=== PATIENT | female | born 1945 | race Caucasian/White ===

== ENCOUNTER → 2018-02-25 07:52 | Outpatient (REF) | payer OTHER, SELFPAY ==
[2018-02-25 08:20] LABS: INR 4.5 (0.9-1.3); Prothrombin Time 53.3 SECONDS (10.1-12.7)
[2018-02-25 08:23] LABS: Add Manual Diff / Slide Review NO; Basophils Percent Auto 0.9 % (0-2); Eosinophils Percent Auto 1.3 % (2-4); Hemoglobin 12.3 g/dL (12.0-16.0); Lymphocytes Percent Auto 13.1 % (25-40); Mean Corpuscular HGB Conc 32.3 % (30-36); Mean Corpuscular Hemoglobin 27.1 PG (26-34); Mean Corpuscular Volume 84.1 fL (80-100); Neutrophils Absolute Auto 4700 /uL (1500-7000); Neutrophils Percent Auto 75.7 % (50-75); Platelet Count 216 X10^3/uL (150-400); Red Blood Cell Count 4.52 X10^6/uL (4.0-5.2); Red Cell Distribution Width 16.7 % (11.6-14.8); White Blood Cell Count 6.2 X10^3/uL (4.5-11.0)
[2018-02-25 08:27] LABS: BUN Creatinine Ratio 37.5 (6-22); Blood Urea Nitrogen 15 mg/dL (7-17); Calcium 10.2 mg/dL (8.4-10.2); Chloride 93 mmol/L (98-107); Estimated Glomerular Filt Rate > 60.0 mL/min (>60); Glucose 85 mg/dL (80-110); HEMOLYSIS < 15 (0-50); Potassium 3.9 mmol/L (3.4-5.1); Sodium 138 mmol/L (137-145)
[2018-02-25 08:38] LABS: Carbon Dioxide 39 mmol/L (22-32)
== END ==
LOC: LAB 07:52
PROVIDERS: Visit Provider Hospitalist
DX: I48.91 Unspecified atrial fibrillation (principal); I10 Essential (primary) hypertension
CPT/HCPCS: 36415; 80048; 85025; 85610

== ENCOUNTER → 2018-03-06 07:18 | Outpatient (REF) | payer OTHER, SELFPAY ==
[2018-03-06 09:24] LABS: Prothrombin Time 74.5 SECONDS (10.1-12.7)
[2018-03-06 09:35] LABS: INR 6.2 (0.9-1.3)
== END ==
LOC: LAB 07:18
PROVIDERS: Visit Provider Hospitalist
DX: I48.91 Unspecified atrial fibrillation (principal)
CPT/HCPCS: 36415; 85610

== ENCOUNTER → 2018-03-08 14:02 | Outpatient (REF) | payer OTHER, SELFPAY ==
[2018-03-08 14:09] LABS: INR 1.9 (0.9-1.3); Prothrombin Time 22.1 SECONDS (10.1-12.7)
== END ==
LOC: LAB 14:02
PROVIDERS: Visit Provider Hospitalist
DX: Z79.01 Long term (current) use of anticoagulants (principal)
CPT/HCPCS: 85610

== ENCOUNTER → 2018-03-11 07:40 | Outpatient (REF) | payer OTHER, SELFPAY ==
[2018-03-11 08:52] LABS: INR 2.2 (0.9-1.3); Prothrombin Time 26.2 SECONDS (10.1-12.7)
[2018-03-11 10:13] LABS: Thyroid Stimulating Hormone 3.15 uIU/mL (0.47-4.68)
== END ==
LOC: LAB 07:40
PROVIDERS: Visit Provider Nurse Practitioner
DX: I48.91 Unspecified atrial fibrillation (principal); E03.9 Hypothyroidism, unspecified
CPT/HCPCS: 36415; 84443; 85610

== ENCOUNTER 2018-03-12 12:22 | Emergency (ER) | payer OTHER, SELFPAY ==
[2018-03-12] VITALS (12 sets, daily range): BP systolic 89–117; BP diastolic 47–83; PULSE 75–135; RESP 17–25; TEMP 36.6–36.8; O2SAT 93–100; BMI 22.8
--- NOTE | 2018-03-12 12:47 | DI.RAD.S_ITS ---
PROCEDURE: XR CHEST 1V INDICATIONS: SOB, recent pneumonia TECHNIQUE: One view of the chest was acquired. COMPARISON: [facility], CR, ABDOMEN ACUTE SERIES, 05/03/2013, 15:10. FINDINGS: This examination is severely limited as the patient is unable to move her head away from the [id number] of the lungs. Elevation of the left diaphragm is present. There may be a normal consolidation at the left lung base. The heart is enlarged. There appears to be a large hiatal hernia. The transverse colon may be distended. Pneumatosis structures are grossly unremarkable. IMPRESSION: 1. Limited evaluation of the chest. There may be left basilar atelectasis versus pneumonia. Please correlate clinically. 2. Prominent hiatal hernia. 3. Cardiomegaly. Dictated by: Charles Alejandro M.D. on 03/12/2018 at 12:33 Approved by: Charles Alejandro M.D. on 03/12/2018 at 12:35
[2018-03-12 12:58] LABS: Add Manual Diff / Slide Review NO; Basophils Absolute Auto 0 /uL (0-100); Basophils Percent Auto 0.7 % (0-2); Eosinophils Absolute Auto 100 /uL (0-450); Hematocrit 36.5 % (36-46); Hemoglobin 11.6 g/dL (12.0-16.0); Lymphocytes Absolute Auto 900 /uL (1100-4500); Lymphocytes Percent Auto 21.9 % (25-40); Mean Corpuscular HGB Conc 31.8 % (30-36); Mean Corpuscular Hemoglobin 26.7 PG (26-34); Mean Corpuscular Volume 84.1 fL (80-100); Monocytes Absolute Auto 500 /uL (0-900); Monocytes Percent Auto 11.3 % (3-14); Neutrophils Absolute Auto 2700 /uL (1500-7000); Neutrophils Percent Auto 63.1 % (50-75); Platelet Count 242 X10^3/uL (150-400); Red Blood Cell Count 4.34 X10^6/uL (4.0-5.2); Red Cell Distribution Width 18.3 % (11.6-14.8); White Blood Cell Count 4.2 X10^3/uL (4.5-11.0)
[2018-03-12 13:16] LABS: Alanine Aminotransferase 20 IU/L (9-52); Albumin 3.7 g/dL (3.5-5.0); Albumin Globulin Ratio 1.4 (1.0-2.8); Alkaline Phosphatase 79 U/L (38-126); Aspartate Aminotransferase 8 IU/L (14-36); BUN Creatinine Ratio 21.7 (6-22); Bilirubin Total 0.8 mg/dL (0.2-1.3); Blood Urea Nitrogen 13 mg/dL (7-17); Calcium 9.9 mg/dL (8.4-10.2); Carbon Dioxide 33 mmol/L (22-32); Chloride 97 mmol/L (98-107); Estimated Glomerular Filt Rate > 60.0 mL/min (>60); Globulin 2.7 g/dL (1.7-4.1); Glucose 91 mg/dL (80-110); HEMOLYSIS < 15 (0-50); Potassium 4.1 mmol/L (3.4-5.1); Sodium 137 mmol/L (137-145); Total Protein 6.4 g/dL (6.3-8.2)
[2018-03-12 13:31] LABS: Procalcitonin < 0.05 ng/mL (<0.5)
--- NOTE | 2018-03-12 13:37 | ED.SOB ---
HPI - SOB/Dyspnea General Chief Complaint: Shortness of Breath/Dyspnea Stated Complaint: Trouble breathing Time Seen by Provider: 03/12/18 12:42 Source: patient, family and EMS Mode of arrival: EMS Limitations: no limitations History of Present Illness 73-year-old female with chronic medical problems presents to the emergency department today with a chief complaint occasional cough with some epigastric discomfort as well as occasionally low blood pressures and high heart rate. The patient was recently hospitalized for an extended period and had a pneumonia diagnosed CT scan. She was discharged from [facility] to a local [facility] facility and after evaluation today was sent for further evaluation. The patient denies much in the way of any symptoms and states she has a little bit upset that she is here and actually feels great. She has had no fever or chills, she denies nausea, vomiting or diarrhea MD Complaint: cough Onset (ago): day(s) Severity: moderate Consistency/Duration: constant Relieving factors: nothing Exacerbating factors: nothing Known history of: aspiration pneumonia Associated symptoms: denies other symptoms Treatment prior to arrival: none Related Data Home oxygen amount: none Home Medications Medication Instructions Recorded Confirmed acetaminophen 650 mg PO Q4H 03/12/18 03/12/18 bisacodyl 5 - 10 mg PO PRN PRN 03/12/18 03/12/18 bisacodyl 10 mg TN PRN PRN 03/12/18 03/12/18 carbidopa-levodopa 3 tab PO TID 03/12/18 03/12/18 cholecalciferol (vitamin D3) 3,000 unit PO DAILY 03/12/18 03/12/18 diltiazem HCl [Cartia XT] 120 mg PO DAILY 03/12/18 03/12/18 food supplemt, lactose-reduced 8 oz PO BID 03/12/18 03/12/18 [Ensure] furosemide 40 mg PO DAILY 03/12/18 03/12/18 ipratropium-albuterol 3 ml INHALATION BIDX3D 03/12/18 03/12/18 levothyroxine 100 mcg PO DAILY 03/12/18 03/12/18 magnesium hydroxide [Milk of 30 ml PO PRN PRN 03/12/18 03/12/18 Magnesia] metoprolol tartrate 25 mg PO BID 03/12/18 03/12/18 omeprazole 20 mg PO DAILY 03/12/18 03/12/18 potassium chloride 10 meq PO DAILY 03/12/18 03/12/18 sodium phosphates [Fleet Enema] 1 ea TN PRN PRN 03/12/18 03/12/18 tolterodine [Detrol LA] 2 mg PO DAILY 03/12/18 03/12/18 warfarin [Coumadin] 3 mg PO DAILYX2 03/12/18 03/12/18 Allergies Allergy/AdvReac Type Severity Reaction Status Date / Time hydrocodone Allergy Unknown Verified 03/12/18 12:28 strawberry Allergy Unknown Verified 03/12/18 12:28 Review of Systems Constitutional Denies chills, Denies fever(s), Denies lethargy and Reports weakness Eyes Denies change in vision, Denies eye discharge, Denies irritation and Denies loss of vision ENT Ears, Nose, Mouth, and Throat: Denies change in voice, Denies neck pain and Denies sore throat Cardiovascular Denies chest pain, Denies irregular heart rhythm, Denies lightheadedness, Denies palpitations, Reports dyspnea, Denies dyspnea on exertion and Denies orthopnea Respiratory Reports cough, Reports dyspnea, Denies dyspnea on exertion and Denies wheezing Gastrointestinal Gastrointestinal: Reports abdominal pain, Denies change in bowel habits, Denies diarrhea, Denies nausea and Denies vomiting Genitourinary Denies hematuria, Denies flank pain, Denies urinary incontinence and Denies urinary urgency Musculoskeletal Denies neck pain Integumentary/Breasts Denies pruritus, Denies erythema, Denies rash and Denies wounds Neurologic Denies confusion, Denies loss of vision and Reports weakness Psychiatric Denies anxiety, Denies confusion, Denies depression, Denies homicidal ideation and Denies suicidal ideation Endocrine Denies palpitations Hematologic/Lymphatic Denies easy bruising Allergic/Immunologic Denies wheezing Exam Narrative Exam Narrative: GENERAL: Chronically ill patient is in good spirits and questioning why she is here. No obvious distress HEAD: Atraumatic. Normocephalic. No temporal or scalp tenderness. EYES: Pupils equal round and reactive. Extraocular motions intact. No scleral icterus. No injection or drainage. ENT: Nose without bleeding, purulent drainage or septal hematoma. Throat without erythema, tonsillar hypertrophy or exudate. Uvula midline. Airway patent. NECK: Trachea midline. No JVD or lymphadenopathy. Supple, nontender, no meningeal signs. CARDIOVASCULAR: Tachycardic rate with regular rhythm without murmurs, gallops, or rubs. RESPIRATORY: Clear to auscultation. Breath sounds equal bilaterally. No wheezes, rales, or rhonchi. GASTROINTESTINAL: Abdomen soft, non-tender, nondistended. No hepato-splenomegaly, or palpable masses. No guarding. EXTREMITIES: No clubbing, cyanosis, or edema. No joint tenderness, effusion, or edema noted. BACK: Nontender without deformity or crepitance. No flank tenderness. NEURO: AOx3. SKIN: No rash or erythema. Initial Vital Signs Initial Vital Signs: Vital Signs Temperature 97.9 F 03/12/18 12:27 Pulse Rate 129 H 03/12/18 12:27 Respiratory Rate 18 03/12/18 12:27 Blood Pressure 117/83 03/12/18 12:27 Pulse Oximetry 93 03/12/18 12:27 Course Orders Ordered: ED Orders 03/12/18 12:26 EKG-12 Lead Routine 03/12/18 12:45 Complete Blood Count AUTO DIFF Stat Comprehensive Metabolic Panel Stat Lactate (Lactic Acid) Stat Procalcitonin Stat 03/12/18 12:47 XR chest 1V Stat 03/12/18 13:20 Blood Culture Stat 03/12/18 13:38 CT chest abdomen w con Stat 03/12/18 15:03 EKG-12 Lead Stat Sodium Chloride (Normal Saline 0.9%) 1,592.1 mls @ 530.7 mls/hr 30 ml/kg infuse over 3 hr (1592.1 ml) IV CONT PEDRO Last Infusion: 03/12/18 16:32 Dose: 0 mls/hr Admin: 03/12/18 13:56 Dose: 530.7 mls/hr Discontinued Medications Ceftriaxone Sodium/Dextrose (Rocephin) 1 gm in 50 mls @ 100 mls/hr IV NOW ONE Stop: 03/12/18 13:15 Last Infusion: 03/12/18 16:05 Dose: 0 mls/hr Admin: 03/12/18 13:54 Dose: 100 mls/hr Metoprolol Tartrate (Lopressor) 25 mg PO NOW ONE Stop: 03/12/18 17:18 Last Admin: 03/12/18 17:29 Dose: 25 mg Reevaluation(s) Reevaluation #1: Patient resting comfortably, no specific complaints other than how uncomfortable the bed is. Heart rate is between 97 and 110. Vital Signs - 8 hr 03/12/18 12:27 03/12/18 13:00 03/12/18 13:30 Temperature 97.9 F Pulse Rate 129 H 135 H 129 H Respiratory Rate 18 Blood Pressure 117/83 Blood Pressure [Right Arm] 109/65 104/47 L Pulse Oximetry 93 100 100 03/12/18 14:00 03/12/18 14:30 03/12/18 15:00 Temperature Pulse Rate 122 H 75 126 H Respiratory Rate 25 H Blood Pressure Blood Pressure [Right Arm] 89/74 L 90/71 90/53 L Pulse Oximetry 100 98 99 03/12/18 16:00 03/12/18 17:24 Temperature Pulse Rate 115 H 119 H Respiratory Rate 24 Blood Pressure Blood Pressure [Right Arm] 90/59 L 92/65 Pulse Oximetry 99 100 MDM - SOB/Dyspnea Lab Data Result diagrams: 03/12/18 12:45 03/12/18 12:45 Lab Results 03/12/18 03/12/18 03/12/18 Range/Units 12:45 12:45 12:45 WBC 4.2 L (4.5-11.0) X10^3/uL RBC 4.34 (4.0-5.2) X10^6/uL Hgb 11.6 L (12.0-16.0) g/dL Hct 36.5 (36-46) % MCV 84.1 (80-100) fL MCH 26.7 (26-34) PG MCHC 31.8 (30-36) % RDW 18.3 H (11.6-14.8) % Plt Count 242 (150-400) X10^3/uL Neut % (Auto) 63.1 (50-75) % Lymph % (Auto) 21.9 L (25-40) % [place] % (Auto) 11.3 (3-14) % Eos % (Auto) 3.0 (2-4) % Baso % (Auto) 0.7 (0-2) % Neut # (Auto) 2700 (6949-7855) /uL Lymph # (Auto) 900 L (1690-2606) /uL [place] # (Auto) 500 (0-900) /uL Eos # (Auto) 100 (0-450) /uL Baso # (Auto) 0 (0-100) /uL Sodium 137 (137-145) mmol/L Potassium 4.1 (3.4-5.1) mmol/L Chloride 97 L (98-107) mmol/L Carbon Dioxide 33 H (22-32) mmol/L BUN 13 (7-17) mg/dL Creatinine 0.60 (0.52-1.04) mg/dL Estimated GFR > 60.0 (>60) mL/min BUN/Creatinine Ratio 21.7 (6-22) Glucose 91 (80-110) mg/dL Lactate (0.7-2.1) mmol/L Calcium 9.9 (8.4-10.2) mg/dL Total Bilirubin 0.8 (0.2-1.3) mg/dL AST 8 L (14-36) IU/L ALT 20 (9-52) IU/L Alkaline Phosphatase 79 (38-126) U/L Total Protein 6.4 (6.3-8.2) g/dL Albumin 3.7 (3.5-5.0) g/dL Globulin 2.7 (1.7-4.1) g/dL Albumin/Globulin Ratio 1.4 (1.0-2.8) Procalcitonin < 0.05 (<0.5) ng/mL 03/12/18 Range/Units 12:45 WBC (4.5-11.0) X10^3/uL RBC (4.0-5.2) X10^6/uL Hgb (12.0-16.0) g/dL Hct (36-46) % MCV (80-100) fL MCH (26-34) PG MCHC (30-36) % RDW (11.6-14.8) % Plt Count (150-400) X10^3/uL Neut % (Auto) (50-75) % Lymph % (Auto) (25-40) % [place]wey % (Auto) (3-14) % Eos % (Auto) (2-4) % Baso % (Auto) (0-2) % Neut # (Auto) (7518-9925) /uL Lymph # (Auto) (2998-1852) /uL [place]wey # (Auto) (0-900) /uL Eos # (Auto) (0-450) /uL Baso # (Auto) (0-100) /uL Sodium (137-145) mmol/L Potassium (3.4-5.1) mmol/L Chloride (98-107) mmol/L Carbon Dioxide (22-32) mmol/L BUN (7-17) mg/dL Creatinine (0.52-1.04) mg/dL Estimated GFR (>60) mL/min BUN/Creatinine Ratio (6-22) Glucose (80-110) mg/dL Lactate 1.0 (0.7-2.1) mmol/L Calcium (8.4-10.2) mg/dL Total Bilirubin (0.2-1.3) mg/dL AST (14-36) IU/L ALT (9-52) IU/L Alkaline Phosphatase (38-126) U/L Total Protein (6.3-8.2) g/dL Albumin (3.5-5.0) g/dL Globulin (1.7-4.1) g/dL Albumin/Globulin Ratio (1.0-2.8) Procalcitonin (<0.5) ng/mL Urine Dip Bedside Urine Glucose Negative Bedside Urine Bilirubin - Negative Bedside Urine Ketone - Negative Urine Specific [place] 1.010 Bedside Urine Occult Blood + Bedside Urine pH 8.0 Bedside Urine Protein - Negative Bedside Urine Urobilinogen - Negative Bedside Urine Nitrite - Negative Bedside Urine Leukocytes - Negative Esterase Discharge Plan Departure Patient Disposition: Home Clinical Impression: Abdominal pain, Constipation Instructions: Constipation, Acute Abdominal Pain Activity Restrictions/Additional Instructions: *You have been diagnosed with [ abdominal pain, constipation, atrial fibrillation ] *What to do: *Take medications as directed *Follow up with your primary care provider in 2-3 days, call for an appointment. Let them know you were seen in the Emergency Department and that we ask that you be seen in follow up *Return to ER if you should have any new, worsening or concerning symptoms Prescriptions: No Action tolterodine [Detrol LA] 2 mg Capsule,Extended Release 24hr 2 mg PO DAILY RF: 0 furosemide 40 mg Tablet 40 mg PO DAILY RF: 0 ipratropium-albuterol 0.5 mg-3 mg(2.5 mg base)/3 mL Solution For Nebulization 3 ml Inhalation [id number] RF: 0 acetaminophen 650 mg Tablet Extended Release 650 mg PO Q4H RF: 0 warfarin [Coumadin] 3 mg Tablet 3 mg PO DAILYX2 RF: 0 levothyroxine 100 mcg Tablet 100 mcg PO DAILY RF: 0 magnesium hydroxide [Milk of Magnesia] 400 mg/5 mL Suspension 30 ml PO PRN PRN (Reason: Constipation) RF: 0 bisacodyl 10 mg Suppository 10 mg TN PRN PRN (Reason: Constipation) RF: 0 sodium phosphates [Fleet Enema] 19-7 gram/118 mL Enema 1 ea TN PRN PRN (Reason: Constipation) RF: 0 omeprazole 20 mg Capsule,Delayed Release(Dr/Ec) 20 mg PO DAILY RF: 0 diltiazem HCl [Cartia XT] 120 mg Capsule,Extended Release 24hr 120 mg PO DAILY RF: 0 bisacodyl 5 mg Tablet,Delayed Release (Dr/Ec) 5 - 10 mg PO PRN PRN (Reason: mild to severe constipation) RF: 0 carbidopa-levodopa 25-100 mg Tablet 3 tab PO TID RF: 0 food supplemt, lactose-reduced [Ensure] Liquid 8 oz PO BID RF: 0 potassium chloride 10 mEq Tablet,Er Particles/Crystals 10 meq PO DAILY RF: 0 metoprolol tartrate 25 mg Tablet 25 mg PO BID RF: 0 cholecalciferol (vitamin D3) 3,000 unit Tablet 3,000 unit PO DAILY RF: 0
--- NOTE | 2018-03-12 13:38 | DI.CT.S_ITS ---
PROCEDURE: CT CHEST ABDOMEN W CON COMPARISON: [facility], CR, ABDOMEN ACUTE SERIES, 05/03/2013, 15:10. INDICATIONS: cough, SOB< recent PNA, upper abdominal pain FINDINGS: Chest: Mild posterior consolidation is identified within the left lower lobe with decreased enhancement. There is also mild consolidation identified within the posterior right lower lobe. No effusion or pneumothorax is evident. The heart is enlarged. The main pulmonary arterial trunk may be enlarged. No pericardial effusion is evident. Coronary artery atherosclerosis is noted. A left-sided diaphragmatic hernia versus paralytic diaphragm is present. Imaged osseous structures of the chest are age-appropriate and demonstrate multilevel degenerative changes. A prominent T12 compression deformity is identified with approximately 90% anterior vertebral height loss. Included portions of the head and neck are grossly unremarkable, but not adequately evaluated. Abdomen: The liver and spleen are probably within normal limits. There may be a calcified small splenic artery aneurysm within the splenic hilum, measuring approximately 12 mm in diameter. There may be debris versus polyps within the gallbladder, which is slightly prominent in size. There is a moderate sized hypodense left adrenal lesion measuring 2.7 x 2.8 cm (image 55, series 2). The right adrenal gland is unremarkable. Multiple bilateral renal cysts are evident. There also are multiple bilateral renal calculi evident. No hydronephrosis is evident. Cystic foci within the region of the head of the pancreas are present. However, the pancreas is not well-seen. No definite solid pancreatic abnormality is appreciated. There is a large amount of stool identified throughout the colon. A feculent material within the imaged small bowel loops also is present. No fluid-filled distended small bowel loops are evident. No free fluid, loculated fluid collection or free air is identified within the abdomen. Image osseous structures demonstrate age-appropriate degenerative changes of the spine. There is an age indeterminate L3 compression deformity with approximately 20% anterior vertebral height loss. IMPRESSION: 1. Possible bibasilar pneumonia versus atelectasis. 2. Cardiomegaly without overt heart failure. 3. Age-indeterminate T12 and L3 compression deformities. 4. Probable left diaphragmatic hernia containing stomach. 5. Large amount of stool throughout the colon is suggestive of constipation. 6. Bilateral nonobstructing renal calculi. No hydronephrosis. 7. Sludge versus small polyps within the gallbladder. 8. A small cystic foci within the region of the head of the pancreas are not well characterized. MRI would helpful for better characterization, if indicated. 9. Left adrenal mass may represent a prominent adrenal adenoma. 10. Possible small distal splenic artery aneurysm. Dictated by: Charles Alejandro M.D. on 03/12/2018 at 13:32 Approved by: Charles Alejandro M.D. on 03/12/2018 at 13:46
[2018-03-12] MEDS: CEFTRIAXONE 1 GM/50 ML FROZ.PIGGY IV (13:54)
[2018-03-12] MEDS: SODIUM CHLORIDE 0.9% 530.7 ML IV (13:56)
--- NOTE | 2018-03-12 15:33 | PC.NURSE ---
attempted an I/O straight cath, unsuccessful, pt thought she may be able to try to void in a ybarra at the time. bed ybarra placed, pt did void. pt cleaned and placed in brief.
--- NOTE | 2018-03-12 17:10 | ED_ITS ---
HPI - SOB/Dyspnea General Chief Complaint: Shortness of Breath/Dyspnea Stated Complaint: Trouble breathing Time Seen by Provider: 03/12/18 12:42 Source: patient, family and EMS Mode of arrival: EMS Limitations: no limitations History of Present Illness 73-year-old female with chronic medical problems presents to the emergency department today with a chief complaint occasional cough with some epigastric discomfort as well as occasionally low blood pressures and high heart rate. The patient was recently hospitalized for an extended period and had a pneumonia diagnosed CT scan. She was discharged from [facility] to a local senior living facility and after evaluation today was sent for further evaluation. The patient denies much in the way of any symptoms and states she has a little bit upset that she is here and actually feels great. She has had no fever or chills, she denies nausea, vomiting or diarrhea MD Complaint: cough Onset (ago): day(s) Severity: moderate Consistency/Duration: constant Relieving factors: nothing Exacerbating factors: nothing Known history of: aspiration pneumonia Associated symptoms: denies other symptoms Treatment prior to arrival: none Related Data Home oxygen amount: none Home Medications Medication Instructions Recorded Confirmed acetaminophen 650 mg PO Q4H 03/12/18 03/12/18 bisacodyl 5 - 10 mg PO PRN PRN 03/12/18 03/12/18 bisacodyl 10 mg DE PRN PRN 03/12/18 03/12/18 carbidopa-levodopa 3 tab PO TID 03/12/18 03/12/18 cholecalciferol (vitamin D3) 3,000 unit PO DAILY 03/12/18 03/12/18 diltiazem HCl [Cartia XT] 120 mg PO DAILY 03/12/18 03/12/18 food supplemt, lactose-reduced 8 oz PO BID 03/12/18 03/12/18 [Ensure] furosemide 40 mg PO DAILY 03/12/18 03/12/18 ipratropium-albuterol 3 ml INHALATION [id number] 03/12/18 03/12/18 levothyroxine 100 mcg PO DAILY 03/12/18 03/12/18 magnesium hydroxide [Milk of 30 ml PO PRN PRN 03/12/18 03/12/18 Magnesia] metoprolol tartrate 25 mg PO BID 03/12/18 03/12/18 omeprazole 20 mg PO DAILY 03/12/18 03/12/18 potassium chloride 10 meq PO DAILY 03/12/18 03/12/18 sodium phosphates [Fleet Enema] 1 ea DE PRN PRN 03/12/18 03/12/18 tolterodine [Detrol LA] 2 mg PO DAILY 03/12/18 03/12/18 warfarin [Coumadin] 3 mg PO DAILYX2 03/12/18 03/12/18 Allergies Allergy/AdvReac Type Severity Reaction Status Date / Time hydrocodone Allergy Unknown Verified 03/12/18 12:28 strawberry Allergy Unknown Verified 03/12/18 12:28 Review of Systems Constitutional Denies chills, Denies fever(s), Denies lethargy and Reports weakness Eyes Denies change in vision, Denies eye discharge, Denies irritation and Denies loss of vision ENT Ears, Nose, Mouth, and Throat: Denies change in voice, Denies neck pain and Denies sore throat Cardiovascular Denies chest pain, Denies irregular heart rhythm, Denies lightheadedness, Denies palpitations, Reports dyspnea, Denies dyspnea on exertion and Denies orthopnea Respiratory Reports cough, Reports dyspnea, Denies dyspnea on exertion and Denies wheezing Gastrointestinal Gastrointestinal: Reports abdominal pain, Denies change in bowel habits, Denies diarrhea, Denies nausea and Denies vomiting Genitourinary Denies hematuria, Denies flank pain, Denies urinary incontinence and Denies urinary urgency Musculoskeletal Denies neck pain Integumentary/Breasts Denies pruritus, Denies erythema, Denies rash and Denies wounds Neurologic Denies confusion, Denies loss of vision and Reports weakness Psychiatric Denies anxiety, Denies confusion, Denies depression, Denies homicidal ideation and Denies suicidal ideation Endocrine Denies palpitations Hematologic/Lymphatic Denies easy bruising Allergic/Immunologic Denies wheezing Exam Narrative Exam Narrative: GENERAL: Chronically ill patient is in good spirits and questioning why she is here. No obvious distress HEAD: Atraumatic. Normocephalic. No temporal or scalp tenderness. EYES: Pupils equal round and reactive. Extraocular motions intact. No scleral icterus. No injection or drainage. ENT: Nose without bleeding, purulent drainage or septal hematoma. Throat without erythema, tonsillar hypertrophy or exudate. Uvula midline. Airway patent. NECK: Trachea midline. No JVD or lymphadenopathy. Supple, nontender, no meningeal signs. CARDIOVASCULAR: Tachycardic rate with regular rhythm without murmurs, gallops, or rubs. RESPIRATORY: Clear to auscultation. Breath sounds equal bilaterally. No wheezes , rales, or rhonchi. GASTROINTESTINAL: Abdomen soft, non-tender, nondistended. No hepato-splenomegaly , or palpable masses. No guarding. EXTREMITIES: No clubbing, cyanosis, or edema. No joint tenderness, effusion, or edema noted. BACK: Nontender without deformity or crepitance. No flank tenderness. NEURO: AOx3. SKIN: No rash or erythema. Initial Vital Signs Initial Vital Signs: Vital Signs Temperature 97.9 F 03/12/18 12:27 Pulse Rate 129 H 03/12/18 12:27 Respiratory Rate 18 03/12/18 12:27 Blood Pressure 117/83 03/12/18 12:27 Pulse Oximetry 93 03/12/18 12:27 Course Orders Ordered: ED Orders 03/12/18 12:26 EKG-12 Lead Routine 03/12/18 12:45 Complete Blood Count AUTO DIFF Stat Comprehensive Metabolic Panel Stat Lactate (Lactic Acid) Stat Procalcitonin Stat 03/12/18 12:47 XR chest 1V Stat 03/12/18 13:20 Blood Culture Stat 03/12/18 13:38 CT chest abdomen w con Stat 03/12/18 15:03 EKG-12 Lead Stat Sodium Chloride (Normal Saline 0.9%) 1,592.1 mls @ 530.7 mls/hr 30 ml/kg infuse over 3 hr (1592.1 ml) IV CONT PEDRO Last Infusion: 03/12/18 16:32 Dose: 0 mls/hr Admin: 03/12/18 13:56 Dose: 530.7 mls/hr Discontinued Medications Ceftriaxone Sodium/Dextrose (Rocephin) 1 gm in 50 mls @ 100 mls/hr IV NOW ONE Stop: 03/12/18 13:15 Last Infusion: 03/12/18 16:05 Dose: 0 mls/hr Admin: 03/12/18 13:54 Dose: 100 mls/hr Metoprolol Tartrate (Lopressor) 25 mg PO NOW ONE Stop: 03/12/18 17:18 Last Admin: 03/12/18 17:29 Dose: 25 mg Reevaluation(s) Reevaluation #1: Patient resting comfortably, no specific complaints other than how uncomfortable the bed is. Heart rate is between 97 and 110. Vital Signs - 8 hr 03/12/18 12:27 03/12/18 13:00 03/12/18 13:30 Temperature 97.9 F Pulse Rate 129 H 135 H 129 H Respiratory Rate 18 Blood Pressure 117/83 Blood Pressure [Right Arm] 109/65 104/47 L Pulse Oximetry 93 100 100 03/12/18 14:00 03/12/18 14:30 03/12/18 15:00 Temperature Pulse Rate 122 H 75 126 H Respiratory Rate 25 H Blood Pressure Blood Pressure [Right Arm] 89/74 L 90/71 90/53 L Pulse Oximetry 100 98 99 03/12/18 16:00 03/12/18 17:24 Temperature Pulse Rate 115 H 119 H Respiratory Rate 24 Blood Pressure Blood Pressure [Right Arm] 90/59 L 92/65 Pulse Oximetry 99 100 MDM - SOB/Dyspnea Lab Data Result diagrams: 03/12/18 12:45 03/12/18 12:45 Lab Results 03/12/18 03/12/18 03/12/18 Range/Units 12:45 12:45 12:45 WBC 4.2 L (4.5-11.0) X10^3/uL RBC 4.34 (4.0-5.2) X10^6/uL Hgb 11.6 L (12.0-16.0) g/dL Hct 36.5 (36-46) % MCV 84.1 (80-100) fL MCH 26.7 (26-34) PG MCHC 31.8 (30-36) % RDW 18.3 H (11.6-14.8) % Plt Count 242 (150-400) X10^3/uL Neut % (Auto) 63.1 (50-75) % Lymph % (Auto) 21.9 L (25-40) % [place] % (Auto) 11.3 (3-14) % Eos % (Auto) 3.0 (2-4) % Baso % (Auto) 0.7 (0-2) % Neut # (Auto) 2700 (4668-5195) /uL Lymph # (Auto) 900 L (1512-3746) /uL [place] # (Auto) 500 (0-900) /uL Eos # (Auto) 100 (0-450) /uL Baso # (Auto) 0 (0-100) /uL Sodium 137 (137-145) mmol/L Potassium 4.1 (3.4-5.1) mmol/L Chloride 97 L (98-107) mmol/L Carbon Dioxide 33 H (22-32) mmol/L BUN 13 (7-17) mg/dL Creatinine 0.60 (0.52-1.04) mg/dL Estimated GFR > 60.0 (>60) mL/min BUN/Creatinine Ratio 21.7 (6-22) Glucose 91 (80-110) mg/dL Lactate (0.7-2.1) mmol/L Calcium 9.9 (8.4-10.2) mg/dL Total Bilirubin 0.8 (0.2-1.3) mg/dL AST 8 L (14-36) IU/L ALT 20 (9-52) IU/L Alkaline Phosphatase 79 (38-126) U/L Total Protein 6.4 (6.3-8.2) g/dL Albumin 3.7 (3.5-5.0) g/dL Globulin 2.7 (1.7-4.1) g/dL Albumin/Globulin Ratio 1.4 (1.0-2.8) Procalcitonin < 0.05 (<0.5) ng/mL 03/12/18 Range/Units 12:45 WBC (4.5-11.0) X10^3/uL RBC (4.0-5.2) X10^6/uL Hgb (12.0-16.0) g/dL Hct (36-46) % MCV (80-100) fL MCH (26-34) PG MCHC (30-36) % RDW (11.6-14.8) % Plt Count (150-400) X10^3/uL Neut % (Auto) (50-75) % Lymph % (Auto) (25-40) % [place] % (Auto) (3-14) % Eos % (Auto) (2-4) % Baso % (Auto) (0-2) % Neut # (Auto) (7288-8813) /uL Lymph # (Auto) (0407-8676) /uL [place] # (Auto) (0-900) /uL Eos # (Auto) (0-450) /uL Baso # (Auto) (0-100) /uL Sodium (137-145) mmol/L Potassium (3.4-5.1) mmol/L Chloride (98-107) mmol/L Carbon Dioxide (22-32) mmol/L BUN (7-17) mg/dL Creatinine (0.52-1.04) mg/dL Estimated GFR (>60) mL/min BUN/Creatinine Ratio (6-22) Glucose (80-110) mg/dL Lactate 1.0 (0.7-2.1) mmol/L Calcium (8.4-10.2) mg/dL Total Bilirubin (0.2-1.3) mg/dL AST (14-36) IU/L ALT (9-52) IU/L Alkaline Phosphatase (38-126) U/L Total Protein (6.3-8.2) g/dL Albumin (3.5-5.0) g/dL Globulin (1.7-4.1) g/dL Albumin/Globulin Ratio (1.0-2.8) Procalcitonin (<0.5) ng/mL Urine Dip Bedside Urine Glucose Negative Bedside Urine Bilirubin - Negative Bedside Urine Ketone - Negative Urine Specific [place] 1.010 Bedside Urine Occult Blood + Bedside Urine pH 8.0 Bedside Urine Protein - Negative Bedside Urine Urobilinogen - Negative Bedside Urine Nitrite - Negative Bedside Urine Leukocytes - Negative Esterase Discharge Plan Departure Patient Disposition: Home Clinical Impression: Abdominal pain, Constipation Instructions: Constipation, Acute Abdominal Pain Activity Restrictions/Additional Instructions: *You have been diagnosed with [ abdominal pain, constipation, atrial fibrillation ] *What to do: *Take medications as directed *Follow up with your primary care provider in 2-3 days, call for an appointment. Let them know you were seen in the Emergency Department and that we ask that you be seen in follow up *Return to ER if you should have any new, worsening or concerning symptoms Prescriptions: No Action tolterodine [Detrol LA] 2 mg Capsule,Extended Release 24hr 2 mg PO DAILY RF: 0 furosemide 40 mg Tablet 40 mg PO DAILY RF: 0 ipratropium-albuterol 0.5 mg-3 mg(2.5 mg base)/3 mL Solution For Nebulization 3 ml Inhalation [id number] RF: 0 acetaminophen 650 mg Tablet Extended Release 650 mg PO Q4H RF: 0 warfarin [Coumadin] 3 mg Tablet 3 mg PO DAILYX2 RF: 0 levothyroxine 100 mcg Tablet 100 mcg PO DAILY RF: 0 magnesium hydroxide [Milk of Magnesia] 400 mg/5 mL Suspension 30 ml PO PRN PRN (Reason: Constipation) RF: 0 bisacodyl 10 mg Suppository 10 mg DE PRN PRN (Reason: Constipation) RF: 0 sodium phosphates [Fleet Enema] 19-7 gram/118 mL Enema 1 ea DE PRN PRN (Reason: Constipation) RF: 0 omeprazole 20 mg Capsule,Delayed Release(Dr/Ec) 20 mg PO DAILY RF: 0 diltiazem HCl [Cartia XT] 120 mg Capsule,Extended Release 24hr 120 mg PO DAILY RF: 0 bisacodyl 5 mg Tablet,Delayed Release (Dr/Ec) 5 - 10 mg PO PRN PRN (Reason: mild to severe constipation) RF: 0 carbidopa-levodopa 25-100 mg Tablet 3 tab PO TID RF: 0 food supplemt, lactose-reduced [Ensure] Liquid 8 oz PO BID RF: 0 potassium chloride 10 mEq Tablet,Er Particles/Crystals 10 meq PO DAILY RF: 0 metoprolol tartrate 25 mg Tablet 25 mg PO BID RF: 0 cholecalciferol (vitamin D3) 3,000 unit Tablet 3,000 unit PO DAILY RF: 0
[2018-03-12] MEDS: METOPROLOL 12.5 MG TABLET 25 MG PO (17:29)
--- NOTE | 2018-03-12 19:31 | PC.NURSE ---
dr ferro in to speak with pt about finding and discharge.
== END 2018-03-12 20:15 | disposition home or self-care (01) ==
PROVIDERS: Emergency Provider Emergency Medicine
DX: R10.9 Unspecified abdominal pain (principal); K59.00 Constipation, unspecified
CPT/HCPCS: 36415; 36591; 71045; 71260; 74160; 80053; 81003; 83605; 84145; 85025; 87040; 93005; 93010; 96365; 96366; 99285